=== PATIENT | male | born 1970 | race Hispanic/Latino ===

== ENCOUNTER 2018-08-16 20:08 | Emergency (ER) | payer SELFPAY ==
[~2018-08-16 20:08] MED LIST: ISOVUE-370 76%-LOCM 1 ML ONE
[2018-08-16 20:57] LABS: #Eosinphils 0.1 thou/uL (0.0-0.7); #Lymphocytes 0.7 thou/uL (1.20-3.40); #Neutrophils 13.2 thou/uL (1.40-6.50); %Eosinophils 0.5 % (0.0-10.0); %Lymphocytes 4.6 % (21.0-51.0); %Monocytes 6.5 % (0.0-10.0); %Neutrophils 88.4 % (42.0-75.0); Hemoglobin 18.9 g/dL (14.0-18.0); Mean Corpuscular HGB CONC 31.9 g/dL (32.0-36.0); Mean Corpuscular Hemoglobin 29.8 pg (27.0-31.0); Mean Corpuscular Volume 93.5 fL (78.0-98.0); Mean Platelet Volume 8.6 fL (7.4-10.4); Platelet Count 269 thou/uL (130-400); RBC Distribution Width 12.4 % (11.5-14.5); Red Blood Cell (RBC) Count 6.35 mill/uL (4.70-6.10)
--- NOTE | 2018-08-16 21:01 | RAD ---
PA AND LATERAL VIEWS CHEST: 08/16/18 HISTORY: Shortness of breath. FINDINGS: The heart size is normal. The aorta is tortuous. The lungs are expanded without focal areas of consol idation, pneumothoraces or pleural effusions. There are old healed rib fractures. IMPRESSION: No radiographic evidence of acute cardiopulmonary process. POS: [facility]
[2018-08-16 21:06] LABS: ALT (SGPT) 63 U/L (8-55); AST (SGOT) 36 U/L (5-34); Albumin 5.7 g/dL (3.5-5.0); Alkaline Phosphatase 110 U/L (40-150); Anion Gap 26 mmol/L (10-20); BUN (Urea Nitrogen) 24 mg/dL (8.9-20.6); Bilirubin, Total 0.7 mg/dL (0.2-1.2); CK (CPK) 469 U/L (30-200); Calc. Creatinine Clearance 0 mL/min (70-130); Calcium 11.4 mg/dL (7.8-10.44); Carbon Dioxide 16 mmol/L (22-29); Chloride 105 mmol/L (98-107); Estimated GFR-MDRD 38; Globulin 3.3 g/dL (2.4-3.5); Glucose 160 mg/dL (70-105); Potassium 4.5 mmol/L (3.5-5.1); Sodium 142 mmol/L (136-145)
--- NOTE | 2018-08-16 23:07 | CT ---
CT ABDOMEN AND PELVIS WITH IV CONTRAST 08/16/18 HISTORY: Abdominal pain. FINDINGS: The lung bases are clear. There is a 12 mm heterogeneous lesion in the right lobe of the liver which may represent hemangioma. No calcified gallstones are seen. The spleen, pancreas, adrenal glands and kidneys are normal. No free air, free fluid or lymphadenopathy seen in the abdomen or pelvis. A normal appendix is presen t. The small bowel loops are not abnormally dilated. There is fluid in the distended rectosigmoid. Th ere are vascular calcifications without evidence of aneurysmal dilatation of the abdominal aorta. The re are mild degenerative changes in the spine. IMPRESSION: No evidence of appendicitis. POS: [place]
== END 2018-08-17 00:35 | disposition home or self-care (01) ==
LOC: ERS 20:08
DX: E86.0 Dehydration (principal); R10.9 Unspecified abdominal pain; F41.9 Anxiety disorder, unspecified; F17.210 Nicotine dependence, cigarettes, uncomplicated
CPT/HCPCS: 36415; 71046; 74177; 80053; 82550; 83690; 85025; 87804; 93005; 96360; 96361; Q9966